=== PATIENT | male | born 1960 | race Asian ===

== ENCOUNTER 2016-05-11 14:10 | Outpatient (CLI) | payer BC ==
--- NOTE | 2016-05-11 15:48 | XRay Report ---
LUMBAR SPINE RADIOGRAPHS: INDICATION: Right lumbar radiculitis. COMPARISON: None similar. FINDINGS: AP and lateral lumbar spine radiographs demonstrate mild lumbar dextroscoliosis apex about L2. L2-L3 degenerative changes with disc narrowing and spurring noted. Slight L4 superior endplate spurring as well. Otherwise normal vertebral body stature. Intact SI joints. Nonobstructive bowel gas pattern. CONCLUSION: No acute lumbar radiographic abnormality with few degenerative changes, greatest at L2-L3, as described. Thank you for the opportunity to participate in this patient's care.
== END 2016-05-11 14:11 | disposition home or self-care (01) ==
LOC: SPVIMAG 14:10
PROVIDERS: ATTEND Internal Medicine
DX: M54.16 Radiculopathy, lumbar region (principal); M41.86 Other forms of scoliosis, lumbar region; M47.896 Other spondylosis, lumbar region
CPT/HCPCS: 72100